=== PATIENT | female | born 2000 | race African-American/Black ===

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

== ENCOUNTER → 2019-01-09 | Outpatient (REF) | payer BC ==
[~2019-01-09] MED LIST changes: +CITA-145 PO; +DOCU-416 PO; +LEVO1TAB29 PO; +OXYC-854 PO
[2019-01-09 17:02] LABS: INR 0.99; PLATELET COUNT, AUTOMATED 296 K/uL (150-450)
== END ==
LOC: ZZSTITCHES 16:38
PROVIDERS: ATTEND Physician Assistant
DX: N93.9 Abnormal uterine and vaginal bleeding, unspecified (principal)
CPT/HCPCS: 84703; 85025; 85610

== ENCOUNTER → 2019-01-11 | Outpatient (CLI) | payer BC ==
[~2019-01-11] MED LIST changes: +DESO1TAB PO; +MEDR10TA57 PO; +NORG1TAB74 PO
== END ==
LOC: LAB 12:05
PROVIDERS: ATTEND Obstetrics & Gynecology
DX: N92.0 Excessive and frequent menstruation with regular cycle (principal)
CPT/HCPCS: 36415; 85240; 85245; 85246